=== PATIENT | male | born 1995 | race Hispanic/Latino ===

== ENCOUNTER 2023-06-04 15:02 | Emergency (ER) | payer OTHER ==
[~2023-06-04] VITALS: Ht 172.7 cm; Wt 99.8 kg
[2023-06-04 15:58] VITALS: BP 138/51; PULSE 88; RESP 20
[2023-06-04] MEDS: ONDANSETRON ODT 4MG TAB SL ONE (16:48)
[2023-06-04] MEDS: IBUPROFEN 600 MG TABLET PO ONE (16:48)
[2023-06-04] MEDS: HYDROCODONE/ACETAMINOPHEN 5/325 MG TAB PO ONE (16:48)
[2023-06-04] MEDS: PREDNISONE 20 MG TABLET ONE (16:54)
== END 2023-06-04 17:32 | disposition home or self-care (01) ==
LOC: EDH 15:02
DX: S16.1XXA Strain of muscle, fascia and tendon at neck level, initial encounter (principal); S80.12XA Contusion of left lower leg, initial encounter; S40.022A Contusion of left upper arm, initial encounter; S06.9X0A Unspecified intracranial injury without loss of consciousness, initial encounter; Z90.49 Acquired absence of other specified parts of digestive tract; V89.2XXA Person injured in unspecified motor-vehicle accident, traffic, initial encounter; Y93.89 Activity, other specified; Y92.89 Other specified places as the place of occurrence of the external cause; Y99.8 Other external cause status
CPT/HCPCS: 70450; 71045; 72100; 72125; 72170; 73030; 73060; 73090; 73552; 73590